=== PATIENT | female | born 1945 | race Caucasian/White ===

== ENCOUNTER → 2018-12-30 | Outpatient (CLI) | payer MEDICARE, BC | LOC: LABPAT 14:22 | PROVIDERS: ATTEND Orthopaedic Surgery | DX: Z01.812 Encounter for preprocedural laboratory examination (principal) | CPT/HCPCS: 87070 ==

== ENCOUNTER 2019-01-19 08:00 | Inpatient (IN) | payer MEDICARE, BC ==
[2019-01-07 15:54] VITALS: BMI 30.2
[~2019-01-19 08:00] MED LIST: ACETAMINOPHEN TAB 500 MG TAB PO ONE; HYDROmorphone 0.5 MG/0.5 ML SYRINGE IVP PRN; LIDOCAINE 1% 20 ML VIAL (10MG/ML) FOR IV START INTRADERMA PRN; TRANEXAMIC ACID 1,000 MG in SODIUM CHLORIDE 0.9% 100 ML IVPB ONE; ceFAZolin IN SWFI 2 GM/20 ML SYRINGE IVP ONE
[2019-01-19] MEDS ORDERED: ROPIVACAINE 246.25 MG, EPINEPHrine 0.5 MG, KETOROLAC 30 MG, cloNIDine HCL/PF 80 MCG, WA... MISCELLANE ONE ×10 (08:01→10:40)
[2019-01-19] MEDS: ONDANSETRON 4 MG/2 ML VIAL IVP ONE ×2 (09:09→13:14)
[2019-01-19] MEDS: LACTATED RINGERS 1,000 ML IV SCH ×3 (09:09→23:30)
[2019-01-19] MEDS ORDERED: fentaNYL (PF) 50 MCG/ML 2 ML AMP IVP ONE (09:33)
[2019-01-19] MEDS ORDERED: MIDAZOLAM 2 MG/2 ML VIAL IVP ONE (09:33)
[2019-01-19] MEDS ORDERED: ROPIVACAINE 1,100 MG, SODIUM CHLORIDE 0.9% 500 ML 330 ML MISCELLANE PRN ×2 (09:58)
--- NOTE | 2019-01-19 09:58 | P.ONQ ---
Anesthesiology Proc Note - PNB - Peripheral Nerve Block Performed Left Adductor Canal Infusion Time Out Performed: Yes Procedure Start Time: 09:32 Procedure Stop Time: 09:45 Indication: Requested by physician Specifically requested for management of pain by DrTim: Robin Andrews Sedation Type: Sedate with meaningful contact maintained Preparation: Sterile Dressing Position: Supine Catheter: Indwelling Needle Types: On-Q, Other (see comment) (pujunk) Needle Size: 100mm (4") Needle Gauge: 18 Technique: Ultrasound Injectate: 0.5% Ropivacaine (see comment for volume) Blood Aspirated: No Pain Paresthesia on Injection Noted: No Resistance on Injection: Normal Events: Uneventful and Well Tolerated
[2019-01-19] MEDS ORDERED: fentaNYL (PF) 50 MCG/ML 2 ML AMP ONE (10:48)
[2019-01-19] MEDS ORDERED: KETAMINE 10 MG/ML 20 ML VIAL ONE (10:48)
[2019-01-19] MEDS ORDERED: MIDAZOLAM 2 MG/2 ML VIAL ONE (10:48)
[2019-01-19] MEDS ORDERED: ePHEDrine 50 MG/ML 1 ML AMP ONE (10:48)
[2019-01-19] MEDS ORDERED: TRANEXAMIC ACID 1,000 MG/10 ML VIAL ONE (10:48)
[2019-01-19] MEDS ORDERED: LIDOCAINE 1% INJ 10MG/ML (20 ML MDV) ONE (10:48)
[2019-01-19] MEDS ORDERED: SODIUM CHLORIDE 0.9% 100 ML BAG ONE (10:48)
[2019-01-19] MEDS ORDERED: PROPOFOL 10 MG/ML 20 ML VIAL IV ONE (10:48)
[2019-01-19] MEDS ORDERED: LACTATED RINGERS 1,000 ML IV ONE (11:41)
[2019-01-19] MEDS ORDERED: ceFAZolin 3,000 MG in SODIUM CHLORIDE 0.9% IRRIGATIO 3,000 ML IRRIGATION ONE (12:04)
[2019-01-19] MEDS ORDERED: HYDROcodone/APAP 5-325MG 1 EACH TAB PO PRN ×2 (13:13)
[2019-01-19] MEDS ORDERED: MAGNESIUM HYDROXIDE 2,400 MG/10 ML CUP PO PRN (13:13)
[2019-01-19] MEDS ORDERED: BISACODYL 10 MG SUPP RECTAL PRN (13:13)
[2019-01-19] MEDS ORDERED: NA PHOS,M-B/NA PHOS,DI-BA 133 ML ENEMA RECTAL PRN (13:13)
[2019-01-19] MEDS ORDERED: ONDANSETRON 4 MG/2 ML VIAL IVP PRN (13:13)
[2019-01-19] MEDS ORDERED: HYDROmorphone 0.5 MG/0.5 ML SYRINGE IVP PRN ×3 (13:13)
[2019-01-19] MEDS ORDERED: NALOXONE 0.4 MG/ML 1 ML VIAL IV PRN (13:13)
--- NOTE | 2019-01-19 13:46 | XR ---
EXAMINATION TYPE: XR knee limited LT DATE OF EXAM: 01/19/2019 CLINICAL HISTORY: Left knee pain and arthritis status post total knee replacement. TECHNIQUE: Portable AP and crosstable lateral views of the left knee are obtained immediately postop eratively. COMPARISON: None FINDINGS: Metallic hardware from total left knee arthroplasty is seen and appears satisfactory in al ignment and position. There is evidence of recent surgery with diffuse subcutaneous gas , and soft t issue swelling noted. IMPRESSION: METALLIC HARDWARE FROM TOTAL LEFT KNEE ARTHROPLASTY IS SATISFACTORY IN ALIGNMENT.
[2019-01-19 19:32] VITALS: RESP 16
[2019-01-19] MEDS: ceFAZolin IN SWFI 2 GM/20 ML SYRINGE IVP SCH (19:49)
[2019-01-19] MEDS ORDERED: SENNOSIDES-DOCUSATE SODIUM 1 EACH TAB PO SCH (21:00)
[2019-01-19] MEDS ORDERED: TEMAZEPAM 15 MG CAP PO PRN (22:00)
[2019-01-20] MEDS: ceFAZolin IN SWFI 2 GM/20 ML SYRINGE IVP SCH (02:25)
--- NOTE | 2019-01-20 05:33 | CONS ---
CONSULTATION CHIEF COMPLAINT: A 73-year-old white female who is status post left knee replacement for medical management consult. PAST MEDICAL HISTORY: Dyslipidemia and hypertension, otherwise is relatively healthy. No chest pain or shortness of breath. No history of heart disease or COPD. HOME MEDICATIONS: Hydrochlorothiazide 12.5 mg daily, Lipitor 20 mg daily, which have been reordered. REVIEW OF SYSTEMS: A 14-point review of system is negative except for as in HPI. PHYSICAL EXAMINATION: Blood pressure is 120s to 130s over 60s and 97% on room air, pulse 60s, temperature 97.8. CARDIOVASCULAR: S1, S2. LUNGS: Clear. GI: Soft. HEMATOLOGY: Negative Homans. PSYCH: Fair mood and affect. MUSCULOSKELETAL: Left knee in a brace. ASSESSMENT: 1. Status post left knee replacement. 2. Hypertension. Stable medically. Will restart her home medicines. Follow up if needed. MMODL / IJN: [id number] /
[2019-01-20] MEDS: LACTATED RINGERS 1,000 ML IV SCH ×2 (05:48→11:44)
[2019-01-20] MEDS ORDERED: LEVOTHYROXINE 88 MCG TAB PO SCH (06:30)
--- NOTE | 2019-01-20 07:10 | P.PN ---
Progress Note - Text Progress Note Date: 01/20/19 The patient is status post left adductor canal catheter placement. The catheter was placed for postoperative pain control, status post total [left Knee] arthroplasty. Ropivacaine 0.2% is infusing at[ 4] mLs per hour. The patient has no complaints of[ ] lower extremity numbness or weakness. Patient's VAS score is[ 4]-10. Assessment: Patient's adductor canal catheter is in place and working appropriately. Plan: continue infusion and adjust it as needed.
[2019-01-20 08:27] LABS: Basophils # (A) 0.1 k/uL (0-0.2); Basophils % (A) 1 %; Eosinophils # (A) 0.2 k/uL (0-0.7); Eosinophils % (A) 2 %; HCT 37.6 % (34.0-46.0); Lymphocytes # (A) 1.4 k/uL (1.0-4.8); Lymphocytes % (A) 12 %; MCH 28.6 pg (25.0-35.0); MCHC 31.9 g/dL (31.0-37.0); MCV 89.7 fL (80.0-100.0); Monocytes # (A) 0.8 k/uL (0-1.0); Monocytes % (A) 7 %; Neutrophils # (A) 8.6 k/uL (1.3-7.7); Neutrophils % (A) 77 %; Platelet Count 219 k/uL (150-450); RBC 4.19 m/uL (3.80-5.40); RDW 12.8 % (11.5-15.5); WBC 11.1 k/uL (3.8-10.6)
[2019-01-20 08:53] VITALS: BP 157/78; PULSE 66; TEMP 99.1
[2019-01-20] MEDS ORDERED: HYDROCHLOROTHIAZIDE 12.5 MG CAP PO SCH (09:00)
[2019-01-20] MEDS ORDERED: NIFEdipine XL 90 MG TAB.ER.24 PO SCH (09:00)
[2019-01-20] MEDS ORDERED: RIVAROXABAN 10 MG TAB PO SCH (09:00)
[2019-01-20] MEDS ORDERED: ATORVASTATIN 20 MG TAB PO SCH (09:00)
[2019-01-20] MEDS ORDERED: METOPROLOL TARTRATE 50 MG TAB PO SCH (09:00)
[2019-01-20] MEDS ORDERED: MELOXICAM 7.5 MG TAB PO SCH (09:00)
[2019-01-20] MEDS ORDERED: CALCIUM CARB-VIT D 500MG-200UN 1 EACH TAB PO SCH (09:00)
--- NOTE | 2019-01-20 09:20 | P.DS ---
Providers Date of admission: 01/19/19 08:40 Expected date of discharge: 01/20/19 Attending physician: Robin Andrews Consults: 01/19/19 13:13 Consult Physician Routine Consulting Provider: Eliu Paul Consult Reason/Comments: Medical management Do you want consulting provider notified?: Yes 01/19/19 13:43 Consult Physician Routine Consulting Provider: Jacobo Marte Consult Reason/Comments: medical managment Do you want consulting provider notified?: Yes Primary care physician: Eliu Paul - Discharge Diagnosis(es) (1) Primary localized osteoarthritis of left knee Current Visit: Yes Status: Acute (2) Status post total left knee replacement Current Visit: Yes Status: Acute Hospital Course: This is a 73-year-old female who was last seen with complaint of continued left knee pain. The patient has a known history of degenerative arthritis of the left knee and presents to discuss surgical options. After discussion and consideration the patient elects to proceed with total left knee arthroplasty. The patient is seen preoperatively by her primary care physician and cleared for surgery. The patient is admitted to [facility] for total left knee arthroplasty. The procedures performed without complication or sequelae. He is doing well postoperatively. Vital signs are stable at discharge. Labs are stable at discharge. the patient is ambulating well with walker with minimal assistance. The patient is discharged to home on postop day #1 pending medical clearance. Please see orders and refer to the [facility] for accurate list of medications. Patient Condition at Discharge: Good Plan - Discharge Summary Discharge Rx Participant: No New Discharge Prescriptions: New Aspirin [Adult Low Dose Aspirin EC] 81 mg PO DAILY #1 tablet. HYDROcodone/APAP 5-325MG [[place] 5-325] 1 - 2 each PO Q4-6H PRN #50 tab PRN Reason: Pain Sennosides-Docusate Sodium [Senokot-S] 1 tab PO BID #60 tablet Rivaroxaban [Xarelto] 10 mg PO DAILY #5 tab No Action Hydrochlorothiazide [Hydrodiuril] 12.5 mg PO DAILY Atorvastatin [Lipitor] 20 mg PO DAILY Vitamin E 100 unit PO DAILY Psyllium Husk [Metamucil] 1.2 gm PO DAILY Empire-3 Fatty Acids/Fish Oil [Fish Oil 1,000 mg Softgel] 3 tab PO DAILY NIFEdipine [NIFEdipine ER] 90 mg PO QAM Multivitamin/Iron/Folic Acid [Centrum Women Tablet] 1 tab PO DAILY Metoprolol Tartrate [Lopressor] 50 mg PO QAM Levothyroxine Sodium 88 mcg PO DAILY Glucosamine 1,500 mg PO DAILY Ginkgo 120 mg PO DAILY Calcium Carbonate/Vitamin D3 [Caltrate 600 Plus D3 Tablet] 2 tab PO DAILY Ascorbic Acid [Vitamin C] 1,000 mg PO DAILY Discharge Medication List Ascorbic Acid [Vitamin C] 1,000 mg PO DAILY 01/07/19 [History] Atorvastatin [Lipitor] 20 mg PO DAILY 01/07/19 [History] Calcium Carbonate/Vitamin D3 [Caltrate 600 Plus D3 Tablet] 2 tab PO DAILY 01/07/19 [History] Ginkgo 120 mg PO DAILY 01/07/19 [History] Glucosamine 1,500 mg PO DAILY 01/07/19 [History] Hydrochlorothiazide [Hydrodiuril] 12.5 mg PO DAILY 01/07/19 [History] Levothyroxine Sodium 88 mcg PO DAILY 01/07/19 [History] Metoprolol Tartrate [Lopressor] 50 mg PO QAM 01/07/19 [History] Multivitamin/Iron/Folic Acid [Centrum Women Tablet] 1 tab PO DAILY 01/07/19 [History] NIFEdipine [NIFEdipine ER] 90 mg PO QAM 01/07/19 [History] Empire-3 Fatty Acids/Fish Oil [Fish Oil 1,000 mg Softgel] 3 tab PO DAILY 01/07/19 [History] Psyllium Husk [Metamucil] 1.2 gm PO DAILY 01/07/19 [History] Vitamin E 100 unit PO DAILY 01/07/19 [History] Aspirin [Adult Low Dose Aspirin EC] 81 mg PO DAILY #1 tablet. 01/19/19 [Rx] HYDROcodone/APAP 5-325MG [[place] 5-325] 1 - 2 each PO Q4-6H PRN #50 tab 01/19/19 [Rx] Rivaroxaban [Xarelto] 10 mg PO DAILY #5 tab 01/19/19 [Rx] Sennosides-Docusate Sodium [Senokot-S] 1 tab PO BID #60 tablet 01/19/19 [Rx] Follow up Appointment(s)/Referral(s): Aaliyah Spain, ИРИНА [PHYSICIAN S[employer]IOR [employer] SPECIALIST] - 2 Weeks Activity/Diet/Wound Care/Special Instructions: May bear wt as tolerated w walker. May shower if no drainage from incision. Discharge Disposition: HOME SELF-CARE
[2019-01-20] MEDS ORDERED: HYDROmorphone 2 MG TAB PO PRN ×3 (13:15→13:16)
--- NOTE | 2019-01-20 13:31 | PN ---
PROGRESS NOTE SUBJECTIVE: A 73-year-old white female status post left knee osteoarthritis been up to the bathroom 6 times been started back on her hypertension medications. She is having no chest pain, shortness of breath. Labs are pending this morning CARDIOVASCULAR: S1-S2. Lungs are clear. PSYCH: Fair mood and affect. MUSCULOSKELETAL: As mentioned above. She is stable from medical standpoint for discharge whenever approved by [facility]. MMODL / IJN: [id number] /
--- NOTE | 2019-01-28 09:26 | P.OP ---
Date of Procedure: 01/19/19 Procedure(s) Performed: PREOPERATIVE DIAGNOSIS: Left knee severe osteoarthritis with genu varum POSTOPERATIVE DIAGNOSIS: Left knee severe osteoarthritis with genu varum OPERATION: Left knee cemented total replacement arthroplasty. ANESTHESIA: Spinal ESTIMATED BLOOD LOSS: 100 ml. LOAD OUT PERSON: Aaliyah Spain PA-C (assistance with: patient positioning, retraction, exposure, hemostasis, leg positioning, implantation, irrigation, closure, dressing) COMPLICATIONS: None apparent. COMPONENTS IMPLANTED: Persona system from [employer] INDICATIONS: Mrs. Moore is a 73 year old female with a history of left knee osteoarthritis. Conservative treatment has been tried and has been unsuccessful in controlling symptoms adequately. The operation of knee replacement has been discussed at length in the office, as well as potential risks and complications. These are inclusive of, but not limited to: bleeding, infection, scarring, discomfort, blood vessel and nerve damage, need for further surgery, failure to relieve symptoms, persistence, recurrence, or worsening of problems, loosening, dislocation, wear, blood clot, pulmonary embolism, , gait dysfunction, stiffness, and other risks as discussed in the office. The patient elects to proceed and the consent form has been signed. PROCEDURE: The patient was taken to the operating room and positioned on the operating room table in the supine position. Anesthesia was initiated. Care was taken to make sure that all pressure points were adequately padded. The operative lower extremity was prepped and draped in the usual aseptic fashion using ChloraPrep. Ioban drape was used for the case and the patient received intravenous antibiotics within one hour of the incision. A pneumotourniquet and leg win were used for the case. The limb was exsanguinated with an Esmarch bandage and the tourniquet was inflated to 350 mmHg. Time-out was called confirming the patient's identity, side, procedure and administration of antibiotics and tranexamic acid, 1 g IV. The incision was then created midline directly over the knee, carried down through skin and into the subcutaneous tissues and down to fascia. Full thickness subcutaneous medial flap was developed. Medial parapatellar arthrotomy was performed and the interior of the knee was inspected. There was end-stage osteoarthritis of the knee with a mild to moderate genu varum type deformity. The fat pad was excised and proximal medial release on the tibia was completed using meticulous dissection and a curved osteotome. The anterior cruciate ligament was taken down. Note was made of significant attrition of the anterior and significant degenerative appearance of the posterior cruciate ligaments. The exposure was excellent. The knee was flexed 90 degrees and the patella was everted. A spot was chosen on the femur approximately 1 cm anterior to the posterior cruciate ligament insertion and an intramedullary hole was created within the femur. The intramedullary guide was then set to 5 degrees of valgus. The distal cutting block was attached and pinned into position. An appropriate amount of distal femoral resection was set. The oscillating saw was then used to make the distal femoral cut. This cut was confirmed to be flat with the flat end of an osteotome. The retractors were placed around the tibia and the tibial surface was addressed. The angle and depth of resection was adjusted using an extramedullary cutting guide. The guide had a built-in 3 degree posterior slope cut. Once the cutting guide was adjusted appropriately and in line with the axis of the tibia and confirmed to be in good position in relation to the second metatarsal and transmalleolar axis, the tibial cut was then created with protection of the posterior neurovascular structures and the collateral ligaments. The tibial cut surface was removed and sized. Femoral sizing was then accomplished using anterior referencing. Care was taken to analyze the posterior condyles for signs of deficiency or severe wear, and adjustments to the guide were made, as appropriate. 3 degree external rotation pins were placed. The cutting jig for the femur was applied to these pins. The planned cuts were further analyzed prior to performing them with the oscillating saw. No femoral notching was produced. Bone fragments were removed and the cut surfaces were finished, as necessary, with a reciprocating saw. Spacer block technique was then used to confirm that the flexion and extension g aps were equal. Soft tissue releases and adjustment of the tibial and/or femoral cuts were made, as necessary, until the gaps were equal. This included release of the posterior cruciate ligament, which was tight in this patient. The femur was then further finished for a posterior cruciate ligament substituting component. Patellar resurfacing was performed using a reamer. The size of the required patellar component was estimated and the patellar surface was then reamed down to a residual thickness which would recreate the [place] thickness with the component. The exact placement of the patellar component was adjusted for position based on preoperative x-rays and intraoperative findings. Prior to placing trial components, anesthetic solution consisting of ropivicaine with epinephrine, ketorolac, and clonidine was injected carefully and methodically in a grid pattern using aspiration technique into the soft tissue around the knee circumferentially, starting with the deeper tissues first and progressing to fascia, and then finally the skin/subcutaneous tissue. Particular care was taken when injecting the posterior capsule. The trial components were inserted. The tibial tray was allowed to self center and the patella was noted to track very well. The position of the tibial component was marked and the tibia was then finished for a stemmed tibial component. Cement was mixed on the back table and applied to the final components. Trial components were removed and the cut surfaces of the bone were pulse lavaged thoroughly and dried. Cement was then applied to the tibial medley rface and pressurized into the surface using finger pressurization technique. The tibial component was then applied and excess cement was removed after it was impacted securely and noted to be flush with the cut surface. In similar fashion, the cement was applied to the cut femoral surface, pressurized in using finger pressurization and the component was impacted into place. Excess cement was removed. The polyethylene spacer was then implanted and locked into position. The patellar component was then applied in similar technique and a patellar clamp was used to hold the patella in place as the cement hardened. Once the cement had fully hardened, the knee was reinspected. Any other cement extrusion was removed and final kinematic testing showed range of motion from 0 to 130 degrees with excellent stability, both medially and laterally and appropriate alignment of the leg. Patellar tracking was excellent. The knee was then thoroughly pulse lavaged with normal saline. The tourniquet w as deflated and hemostasis was obtained with electrocautery and IV tranexamic acid, 1 g given prior to inflation of the tourniquet and another gram given at the time of closure. Closure was with #2 Ethibond in the fascia and supplemented with #2 Quill, 2-0 Vicryl suture was used for the subcutaneous tissues and 3-0 Quill for the skin. Dermabond/Steri-Strips were then applied. A lightly compressive dressing was applied using Webril and an Sky wrap. The patient was then transferred to stretcher and taken to the recovery room in stable condition. Sponge and needle counts were correct.
== END 2019-01-20 15:09 | disposition home health service (06) | DRG 470 ==
LOC: 2ORMAIN 08:40 → 4SSUR 13:28
PROVIDERS: ADMIT Orthopaedic Surgery; ATTEND Orthopaedic Surgery
PROC: 0SRD0J9 Replacement of Left Knee Joint with Synthetic Substitute, Cemented, Open Approach (ICD-10-PCS; principal; 2019-01-19 10:45)
DX: M17.12 Unilateral primary osteoarthritis, left knee (principal); E78.5 Hyperlipidemia, unspecified; I10 Essential (primary) hypertension; E03.9 Hypothyroidism, unspecified; Z79.890 Hormone replacement therapy; Z79.899 Other long term (current) drug therapy; Z87.891 Personal history of nicotine dependence; Z82.49 Family history of ischemic heart disease and other diseases of the circulatory system; M21.162 Varus deformity, not elsewhere classified, left knee
CPT/HCPCS: 85025; 88300

== ENCOUNTER → 2019-03-11 | Outpatient (CLI) | payer MEDICARE, BC ==
[2019-03-11 13:55] LABS: Basophils # (A) 0.1 k/uL (0-0.2); Basophils % (A) 1 %; Eosinophils % (A) 0 %; HCT 40.8 % (34.0-46.0); HGB 13.2 gm/dL (11.4-16.0); Lymphocytes # (A) 2.1 k/uL (1.0-4.8); Lymphocytes % (A) 33 %; MCH 28.7 pg (25.0-35.0); MCHC 32.5 g/dL (31.0-37.0); MCV 88.4 fL (80.0-100.0); Mean Platelet Volume 7.3; Monocytes # (A) 0.5 k/uL (0-1.0); Monocytes % (A) 8 %; Neutrophils # (A) 3.6 k/uL (1.3-7.7); Neutrophils % (A) 56 %; Platelet Count 295 k/uL (150-450); RBC 4.61 m/uL (3.80-5.40); RDW 14.5 % (11.5-15.5); WBC 6.3 k/uL (3.8-10.6)
[2019-03-11 19:56] LABS: Albumin/Globulin Ratio 2.11 (1.60-3.17); Anion Gap 9.1 mmol/L (4.00-12.00); Calcium 9.9 mg/dL (8.7-10.3); Carbon Dioxide 24.9 mmol/L (21.6-31.8); Globulin 1.9 g/dL (1.6-3.3); Potassium 3.9 mmol/L (3.5-5.5); Total Bilirubin 0.6 mg/dL (0.2-1.2); Total Protein 5.9 g/dL (6.2-8.2)
== END | disposition home or self-care (01) ==
LOC: LABWHC1 12:47
PROVIDERS: ATTEND Physician Assistant
DX: M17.12 Unilateral primary osteoarthritis, left knee (principal); I10 Essential (primary) hypertension; E03.9 Hypothyroidism, unspecified; L60.0 Ingrowing nail; R53.81 Other malaise; M24.562 Contracture, left knee; M25.562 Pain in left knee; Z47.1 Aftercare following joint replacement surgery; Z87.891 Personal history of nicotine dependence; R68.83 Chills (without fever); Z96.652 Presence of left artificial knee joint
CPT/HCPCS: 36415; 80053; 85025

== ENCOUNTER → 2023-06-14 | Outpatient (CLI) | payer MEDICARE, BC ==
--- NOTE | 2023-06-15 21:55 | MR ---
EXAMINATION TYPE: MR brain and iac wo/w con DATE OF EXAM: 06/14/2023 COMPARISON: NONE HISTORY: 77-year-old female H90.5 Hearing Loss and Humming in RT ear TECHNIQUE: Multiplanar, multisequence images of the brain and brainstem were acquired before and aft er administration of 7 mL IV Gadavist. Diffusion weighted imaging was performed. Additional coned-d own sequences through the internal auditory canals and posterior cranial fossa before and after IV co ntrast administration. FINDINGS: Diffusion weighted images demonstrate no evidence of an acute ischemic lesion in the brain. Images are without sequences show moderate to severe patchy and confluent bright white matter change in the periventricular, deep, and subcortical regions of both cerebral hemispheres. Mild patchy incre ased signal is also present in the bilateral paramedian jacek. Midline structures demonstrate normal morphology. The craniocervical junction is normal. There is moderate generalized atrophy. Mild ventriculomegaly likely due to central cerebral atrophy. Benedict's ratio is calculated at 0.31. There is no evidence of an acute intracranial hemorrhage, infarct, mass, mass-effect or an extra-axia l fluid collection. There is no cerebellopontine angle mass. The internal auditory canals are symmetric. Brainstem and skull base abnormalities are not seen. Post contrast images demonstrate no evidence of pathologic enhancement in the posterior cranial fossa or the internal auditory canals. There is no abnormal enhancement of the labyrinths. There is moderate to severe mucosal thickening throughout the ethmoid air cells. Lobulated mucosal re tention cysts within the floor of the right maxillary sinus. Globes are intact. Incidental bilateral palatine tonsillar hypertrophy. IMPRESSION: 1. Moderate generalized cerebral atrophy and moderate to severe burden of chronic small vessel ischem ic disease. 2. No acute intracranial abnormality seen. 3. No specific abnormality on acoustic MRI. 4. Moderate to severe chronic ethmoid sinus disease and mild within the right maxillary sinus.
== END | disposition home or self-care (01) ==
LOC: RADMRIMAIN 13:21
PROVIDERS: ATTEND Otolaryngology
DX: I67.82 Cerebral ischemia (principal); J32.2 Chronic ethmoidal sinusitis; J32.0 Chronic maxillary sinusitis; H90.5 Unspecified sensorineural hearing loss; G31.9 Degenerative disease of nervous system, unspecified
CPT/HCPCS: 70553; A9585